=== PATIENT | male | born 1985 | race Caucasian/White ===

== ENCOUNTER 2017-01-14 07:37 | Emergency (ER) | payer SELFPAY ==
[~2017-01-14] VITALS: Ht 185.4 cm; Wt 70.3 kg
[~2017-01-14 07:37] MED LIST: AMOXICILLIN500 MG PO; NAPROSYN500 MG PO; NORCO 325 MG-51 TAB PO; PEN-V500 MG PO; PEN-VK500 MG PO; PERIDEX 480 ML480 ML PO
[2017-01-14] MEDS ORDERED: KEFLEX500 M1 PO (08:20)
== END 2017-01-14 08:24 | disposition home or self-care (01) ==
LOC: ED 07:37
DX: K62.5 Hemorrhage of anus and rectum (principal); K08.89 Other specified disorders of teeth and supporting structures; F17.200 Nicotine dependence, unspecified, uncomplicated

== ENCOUNTER 2017-12-31 23:03 | Emergency (ER) | payer OTHER ==
[~2017-12-31] VITALS: Ht 185.4 cm; Wt 70.3 kg
--- NOTE | ~2017-12-31 | EKG ---
[place], [place] ELECTROCARDIOGRAM REPORT NAME: BREANNA CONNER UNIT #: [id number] ROOM: DOCTOR: EPIPHANY DRAFT REPORT BIRTHDATE: [birth year] [facility] Test Date: 2017-12-31 Test Time: 23:20:50 Pat Name: BREANNA CONNER Department: ER Room: 8 Gender: M Ink Blender: Gale Joyce : 1985 Requested By: ANTONIA LYN Order Number: [id number] Reading MD: Marlo Stoddard MD Measurements Intervals Velva Rate: 111 P: 65 IL: 135 QRS: 77 QRSD: 91 T: 53 QT: 322 QTc: 438 Interpretive Statements Sinus tachycardia ST elev, probable normal early repol pattern Electronically Signed On 01-01-2018 10:51:56 PDT by Marlo Stoddard MD CM:EKGRPT:ELECTROCARDIOGRAM REPORT [id number] ANTONIA LYN MD EPIPHANY DRAFT REPORT ANTONIA LYN MD
[~2017-12-31 23:03] MED LIST changes: +KEFLEX500 M1 PO
[2018-01-01 00:47] LABS: BASO % 0.5 % (0.0-1.0); EOS # 0.1 10*3/uL (0.0-0.4); EOS % 1.2 % (1.0-4.0); HEMOGLOBIN 15.5 g/dl (14.0-18.0); LYMPH # 2.7 10*3/uL (1.3-4.4); LYMPH % 35.1 % (27.0-41.0); MEAN CORPUSCULAR HGB 30.3 pg (27.0-31.0); MEAN CORPUSCULAR HGB CONC 33.7 g/dl (33.0-37.0); MEAN PLATELET VOLUME 10.1 fl (9.6-12.3); MONO # 0.5 10*3/uL (0.1-1.0); MONO % 6.6 % (3.0-9.0); NEUT # 4.3 10*3/uL (2.3-7.9); NEUT % 56.2 % (47.0-73.0); PLATELET COUNT AUTOMATED 190 10*3/uL (130-400); RED BLOOD COUNT 5.11 10*6/uL (4.50-5.90); RED CELL DISTRI WIDTH 12.2 % (0-14.5); WHITE BLOOD COUNT 7.6 10*3/uL (4.8-10.8)
[2018-01-01 00:57] LABS: INTERNATIONAL NORM RATIO 1.1 (2.0-3.5)
[2018-01-01 01:05] LABS: ALBUMIN 3.7 gm/dl (3.1-4.5); ALKALINE PHOSPHATASE 51 U/L (45-117); BUN 11 mg/dl (7-24); CHLORIDE 108 mmol/L (98-107); LIPASE 214 U/L (73-393); POTASSIUM 3.9 mmol/L (3.5-5.1); SGOT/AST 15 IU/L (3-35); SGPT/ALT 33 U/L (12-78); SODIUM 140 mmol/L (136-145); TOTAL PROTEIN 6.9 gm/dL (6.4-8.2)
[2018-01-01 01:08] LABS: TROPONIN I < 0.015 ng/ml (<0.045)
[2018-01-01 01:09] LABS: BILIRUBIN NEGATIVE (NEGATIVE); BLOOD NEGATIVE (NEGATIVE); CLARITY CLEAR (CLEAR); COLOR YELLOW (YELLOW); GLUCOSE NEGATIVE (NEGATIVE); KETONE NEGATIVE (NEGATIVE); LEUKO ESTERASE NEGATIVE (NEGATIVE); NITRITE NEGATIVE (NEGATIVE); PH 5.5 (5.0-9.0); SPECIFIC GRAVITY <= 1.005 (1.005-1.030); UROBILINOGEN 0.2 E.U./dl (0.2-1.0)
[2018-01-01 01:16] LABS: URINE AMPHETAMINES < 1000 (1000ng/ml); URINE BARBITURATES < 200 (200ng/ml); URINE BENZODIAZEPINES < 200 (200ng/ml); URINE CANNABINOIDS (THC) > 50 (50ng/ml); URINE COCAINE < 300 (300ng/ml); URINE METHADONE < 300 (300ng/ml); URINE OPIATES < 300 (300ng/ml)
[2018-01-01 01:17] LABS: WBC 0-2 wbc/hpf (0-5)
[2018-01-01 01:18] LABS: URINE PHENCYCLIDINE < 25 (25ng/ml)
== END 2018-01-01 02:51 | disposition home or self-care (01) ==
LOC: ED 23:03
PROVIDERS: Emergency Medicine Emergency Medical Services
DX: S20.221A Contusion of right back wall of thorax, initial encounter (principal); S80.812A Abrasion, left lower leg, initial encounter; S80.211A Abrasion, right knee, initial encounter; S20.311A Abrasion of right front wall of thorax, initial encounter; V89.2XXA Person injured in unspecified motor-vehicle accident, traffic, initial encounter; Y93.89 Activity, other specified; Y92.488 Other paved roadways as the place of occurrence of the external cause; Y99.8 Other external cause status

== ENCOUNTER 2019-01-01 20:13 | Emergency (ER) | payer SELFPAY ==
[~2019-01-01] VITALS: Ht 177.8 cm; Wt 59.0 kg
--- NOTE | ~2019-01-01 | EKG ---
[place], [place] ELECTROCARDIOGRAM REPORT NAME: BREANNA CONNER UNIT #: [id number] ROOM: DOCTOR: EPIPHANY DRAFT REPORT BIRTHDATE: 89 [facility] Test Date: 2019-01-01 Test Time: 20:52:26 Pat Name: BREANNA CONNER Department: Room: Gender: Bilingual Medical Receptionist: Noble Lima : 1985 Requested By: JAY ERNST PA-C Order Number: [id number] Reading MD: Terry Lyman MD Measurements Intervals [place]el Rate: 97 P: 68 DE: 144 QRS: 75 QRSD: 99 T: 68 QT: 334 QTc: 425 Interpretive Statements Sinus rhythm ST elev, probable normal early repol pattern Compared to ECG 12/31/2017 23:20:50 Sinus tachycardia no longer present ST (T wave) deviation still present Electronically Signed On 01-03-2019 7:45:55 PDT by Terry Lyman MD CM:EKGRPT:ELECTROCARDIOGRAM REPORT [id number] JAY ERNST PA-C EPIPHANY DRAFT REPORT JAY ERNST PA-C
[2019-01-01 20:54] LABS: BASO # 0.1 10*3/uL (0.0-0.1); BASO % 0.8 % (0.0-1.0); EOS # 0.1 10*3/uL (0.0-0.4); HEMATOCRIT 45.9 % (42.0-52.0); HEMOGLOBIN 15.3 g/dl (14.0-18.0); LYMPH # 3.1 10*3/uL (1.3-4.4); LYMPH % 35.3 % (27.0-41.0); MEAN CELL VOLUME 95.6 fl (80.0-94.0); MEAN CORPUSCULAR HGB 31.9 pg (27.0-31.0); MEAN CORPUSCULAR HGB CONC 33.3 g/dl (33.0-37.0); MEAN PLATELET VOLUME 10.1 fl (9.6-12.3); MONO # 0.5 10*3/uL (0.1-1.0); MONO % 5.4 % (3.0-9.0); PLATELET COUNT AUTOMATED 252 10*3/uL (130-400); RED CELL DISTRI WIDTH 13.5 % (0-14.5); WHITE BLOOD COUNT 8.8 10*3/uL (4.8-10.8)
[2019-01-01 21:16] LABS: ALBUMIN 4.2 gm/dl (3.1-4.5); ALKALINE PHOSPHATASE 53 U/L (45-117); BUN 11 mg/dl (7-24); CHLORIDE 111 mmol/L (98-107); CREATININE 1.11 mg/dL (0.70-1.30); POTASSIUM 3.8 mmol/L (3.5-5.1); SGOT/AST 22 IU/L (3-35); SGPT/ALT 30 U/L (12-78); SODIUM 145 mmol/L (136-145); TOTAL PROTEIN 7.8 gm/dL (6.4-8.2)
[2019-01-01 21:24] LABS: THYROID STIM HORMONE (HS) 0.255 uIU/ml (0.358-4.75)
[2019-01-01 21:25] LABS: ACETAMINOPHEN (TYLENOL) < 5.0 ug/ml (10-30)
[2019-01-01 21:43] LABS: URINE AMPHETAMINES < 1000 (1000ng/ml); URINE BARBITURATES < 200 (200ng/ml); URINE BENZODIAZEPINES < 200 (200ng/ml); URINE CANNABINOIDS (THC) > 50 (50ng/ml); URINE COCAINE < 300 (300ng/ml); URINE METHADONE < 300 (300ng/ml); URINE OPIATES < 300 (300ng/ml)
[2019-01-01 21:49] LABS: BILIRUBIN NEGATIVE (NEGATIVE); BLOOD NEGATIVE (NEGATIVE); CLARITY CLEAR (CLEAR); COLOR YELLOW (YELLOW); GLUCOSE NEGATIVE (NEGATIVE); KETONE NEGATIVE (NEGATIVE); LEUKO ESTERASE NEGATIVE (NEGATIVE); NITRITE NEGATIVE (NEGATIVE); UROBILINOGEN 0.2 E.U./dl (0.2-1.0)
[2019-01-01 21:50] LABS: EPITHELIAL CELLS 0-2; WBC 0-2 wbc/hpf (0-5)
[2019-01-01 21:51] LABS: URINE PHENCYCLIDINE < 25 (25ng/ml)
== END 2019-01-04 19:19 | disposition home or self-care (01) ==
LOC: ED 20:13
PROVIDERS: Physician Assistant
DX: F32.9 Major depressive disorder, single episode, unspecified (principal); F10.920 Alcohol use, unspecified with intoxication, uncomplicated; F12.90 Cannabis use, unspecified, uncomplicated; F17.200 Nicotine dependence, unspecified, uncomplicated

== ENCOUNTER 2023-11-28 13:11 | Emergency (ER) | payer SELFPAY ==
[~2023-11-28] VITALS: Ht 182.8 cm; Wt 79.4 kg
== END 2023-11-28 14:35 | disposition home or self-care (01) ==
LOC: ED 13:11
DX: T19.4XXA Foreign body in penis, initial encounter (principal); W44.8XXA Other foreign body entering into or through a natural orifice, initial encounter

== ENCOUNTER 2024-06-28 16:13 | Emergency (ER) | payer SELFPAY ==
[~2024-06-28] VITALS: Ht 182.8 cm; Wt 77.1 kg
[2024-06-28] MEDS ORDERED: Lidocaine Hydrochloride 2% 10 ML AMP SC ONE (16:35)
[2024-06-28] MEDS ORDERED: Bacitracin Zinc 14 GM TUBE T ONE (16:35)
[2024-06-28] MEDS ORDERED: CEPHALEXIN500 M1 PO (17:41)
[2024-06-28] MEDS ORDERED: CEPHALEXIN 500 MG CAP PO ONE (17:45)
== END 2024-06-28 18:37 | disposition home or self-care (01) ==
LOC: ED 16:13
DX: S01.81XA Laceration without foreign body of other part of head, initial encounter (principal); F32.A Depression, unspecified; W22.8XXA Striking against or struck by other objects, initial encounter; Y93.89 Activity, other specified; Y92.89 Other specified places as the place of occurrence of the external cause; Y99.8 Other external cause status